=== PATIENT | male | born 1955 | race Caucasian/White ===

== ENCOUNTER 2016-09-30 13:56 | Observation (INO) | payer OTHER ==
[2016-09-30] MEDS ORDERED: NITROGLYCERIN SL TABS 0.4 MG TAB SUBLINGUAL STA (14:39)
[2016-09-30] MEDS ORDERED: SODIUM CHLORIDE 0.9% 1,000 ML IV STA (14:39)
[2016-09-30] MEDS ORDERED: ASPIRIN 81 MG CHEW PO STA (14:39)
--- NOTE | 2016-09-30 14:41 | ED ---
Chest Pain HPI - General Chief Complaint: Chest Pain Stated Complaint: Chest Pain Time Seen by Provider: 09/30/16 14:36 Source: patient, RN notes reviewed Mode of arrival: wheelchair Limitations: no limitations - History of Present Illness Initial Comments: 60-year-old male presents emergency department chief complaint of right-sided chest pressure. Patient states that on off the last 2 days but states gotten worse and now is getting lightheaded with it. Patient states that he seems to make it better or worse. Patient states he's been drinking like before. Patient does admit to a negative stress test within the last year.. High blood pressure he states he does have a mitral valve problem. Patient states she was concerned because of lightheadedness after developing the pains without that he should be seen. Patient denies any recent fever, chills, shortness of breath, back pain, abdominal pain, nausea vomiting, numbness or tingling, dysuria or hematuria, constipation or diarrhea, headaches or visual changes, or any other current symptoms. - Related Data Home Medications Medication Instructions Recorded Confirmed [place]-3 Fatty Acids/Fish Oil [Fish 1 cap PO DAILY 07/12/15 09/30/16 Oil 1,000 mg Softgel] Levothyroxine Sodium [Synthroid] 150 mcg PO DAILY 09/30/16 09/30/16 Previous Rx's Medication Instructions Recorded Atorvastatin [Lipitor] 80 mg PO DAILY #30 tab 07/13/15 Allergies Allergy/AdvReac Type Severity Reaction Status Date / Time No Known Allergies Allergy Verified 09/30/16 15:27 Review of Systems ROS Statement: Those systems with pertinent positive or pertinent negative responses have been documented in the HPI. ROS Other: All systems not noted in ROS Statement are negative. EKG Findings - EKG Comments: EKG Findings:: normal sinus rhythm 68 bpm, rightward axis, no atopy, no S-T depressions or elevations, Past Medical History Past Medical History: GERD/Reflux, Osteoarthritis (OA), Prostate Disorder, Thyroid Disorder Additional Past Medical History / Comment(s): concussions when younger,exposure to asbestoes while in the [employer],hypothyroid History of Any Multi-Drug Resistant Organisms: None Reported Additional Past Surgical History / Comment(s): hemmoroidectomy Past Anesthesia/Blood Transfusion Reactions: No Reported Reaction Past Psychological History: No Psychological Hx Reported Smoking Status: Former smoker Past Alcohol Use History: None Reported Additional Past Alcohol Use History / Comment(s): STARTED SMOKING AT AGE 14, QUIT 2008 Past Drug Use History: None Reported - Past Family History Father Family Medical History: Diabetes Mellitus Mother History Unknown: Yes General Exam - General Exam Comments Initial Comments: General: The patient is awake and alert, in no distress, and does not appear acutely ill. Eye: Pupils are equal, round and reactive to light, extra-ocular movements are intact; there is normal conjunctiva bilaterally. No signs of icterus. Ears, nose, mouth and throat: There are moist mucous membranes. Neck: The neck is supple, there is no tenderness. Cardiovascular: There is a regular rate and rhythm. No murmur, rub or gallop is appreciated. Respiratory: Lungs are clear to auscultation, respirations are non-labored, breath sounds are equal. No wheezes, stridor, rales, or rhonchi. Gastrointestinal: Soft, non-distended, non-tender abdomen without masses or organomegaly noted. There is no rebound or guarding present. No CVA tenderness. Bowel sounds are unremarkable. Back: There is no tenderness to palpation in the midline. There is no obvious deformity. No rashes noted. Musculoskeletal: Normal ROM, no tenderness, There is no pedal edema. There is no calf tenderness or swelling. Sensation intact. Pulses equal bilaterally 2+. Neurological: CN II-XII intact, There are no obvious motor or sensory deficits. Coordination appears grossly intact. Speech is normal. Skin: Skin is warm and dry and no rashes or lesions are noted. Psychiatric: Cooperative, appropriate mood & affect, normal judgment. Limitations: no limitations Course Vital Signs 09/30/16 09/30/16 13:58 15:02 Temperature 98.4 F Pulse Rate 70 61 Respiratory 17 18 Rate Blood Pressure 205/96 186/91 O2 Sat by Pulse 99 100 Oximetry Chest Pain MDM - MDM 60-year-old male presents emergency Department chief complaint of right-sided chest pain. At this time patient's cardiac workup is reviewed and does not show any acute process however the patient does continue of chest pain even after the nitro. MorphineWE will admit patient to Dr. Fernández for cardiac rule out. This discussed with patient who is in agreement with plan.. Patient is in agreement ANSWERED. Patient will be admitted. Disposition Clinical Impression: Unstable angina Disposition: ADMITTED IP TO THIS HOSP Condition: Stable Time of Disposition: 16:45 Decision Date: 09/30/16 Decision Time: 16:45
[2016-09-30 15:27] LABS: Basophils % (A) 1 %; CH 29.7; CHCM 35.1; Eosinophils # (A) 0.1 k/uL (0-0.7); Eosinophils % (A) 1 %; HCT 44.1 % (39.0-53.0); HDW 2.43; HGB 14.9 gm/dL (13.0-17.5); Luc # (Auto) 0.12; Luc % (Auto) 2; Lymphocytes # (A) 1.3 k/uL (1.0-4.8); Lymphocytes % (A) 24 %; MCH 28.8 pg (25.0-35.0); MCHC 33.8 g/dL (31.0-37.0); MCV 85.1 fL (80.0-100.0); Mean Platelet Volume 7.5; Monocytes # (A) 0.4 k/uL (0-1.0); Monocytes % (A) 6 %; Neutrophils # (A) 3.7 k/uL (1.3-7.7); Neutrophils % (A) 66 %; RBC 5.18 m/uL (4.30-5.90); RDW 12.4 % (11.5-15.5); WBC 5.5 k/uL (3.8-10.6); WBC (Perox) 5.44
[2016-09-30 15:34] LABS: Appearance,Urine Clear (Clear); Bilirubin,Urine Negative (Negative); Glucose,Urine (UA) Negative (Negative); Ketones,Urine Negative (Negative); Leukocyte Esterase,Urine Negative (Negative); Nitrite,Urine Negative (Negative); PH, Urine 6.5 (5.0-8.0); Particle Count 214; Protein,Urine Negative (Negative); RBC,Urine 7 /hpf (0-5); Specific Gravity,Urine 1.008 (1.001-1.035); Squamous Epithelial Cell,Urine <1 /hpf (0-4); UA Billing (MACRO vs. MICRO) MICRO; Urobilinogen,Urine <2.0 mg/dL (<2.0)
[2016-09-30 15:35] LABS: INR 1.1 (<1.1); Partial Thromboplastin Time 24.3 sec (22.0-30.0); Prothrombin Time 10.6 sec (9.0-12.0)
[2016-09-30 15:37] LABS: ALT 62 U/L (21-72); AST 34 U/L (17-59); Alkaline Phosphatase 86 U/L (38-126); Amylase 35 U/L (30-110); Anion Gap 12 mmol/L; Blood Urea Nitrogen 14 mg/dL (9-20); Calcium 9.2 mg/dL (8.4-10.2); Carbon Dioxide 26 mmol/L (22-30); Chloride 102 mmol/L (98-107); Glucose 100 mg/dL (74-99); Non-African American GFR(MDRD) >60 (>60 ml/min/1.73 sqM); Potassium 4.2 mmol/L (3.5-5.1); Sodium 140 mmol/L (137-145); Total Bilirubin 0.4 mg/dL (0.2-1.3); Total Protein 7.5 g/dL (6.3-8.2)
[2016-09-30 15:46] LABS: Creatine Kinase 147 U/L (55-170)
[2016-09-30 16:00] LABS: Creatine Kinase MB 2.2 ng/mL (0.0-2.4); Troponin I <0.012 ng/mL (0.000-0.034)
--- NOTE | 2016-09-30 16:34 | XR ---
EXAMINATION TYPE: XR chest 2V DATE OF EXAM: 09/30/2016 4:20 PM COMPARISON: 07/12/2015 HISTORY: 60-year-old male with chest pain TECHNIQUE: PA and lateral views FINDINGS: The cardiomediastinal silhouette, aorta, and pulmonary vasculature are within normal limits. Lungs an d pleural spaces are clear. IMPRESSION: No acute cardiopulmonary process.
[2016-09-30] MEDS ORDERED: NITROGLYCERIN SL TABS 0.4 MG TAB SUBLINGUAL PRN (16:45)
[2016-09-30] MEDS ORDERED: HEPARIN SODIUM,PORCINE 5,000 UNIT/ML 1 ML VIAL IV ONE (16:45)
[2016-09-30] MEDS ORDERED: HEPARIN SODIUM,PORCINE/D5W PMX 25,000 UNIT in DEXTROSE/WATER 1 500ML.BAG IV SCH (16:45)
[2016-09-30] MEDS ORDERED: MORPHINE SULFATE 2 MG/ML SYRINGE IVP PRN (16:47)
[2016-09-30] MEDS: NITROGLYCERIN OINT 1 INCH/GM PACKET TOPICAL SCH (20:45)
[2016-09-30 22:53] LABS: Creatine Kinase 125 U/L (55-170)
[2016-09-30 23:05] LABS: Creatine Kinase MB 1.6 ng/mL (0.0-2.4); Troponin I <0.012 ng/mL (0.000-0.034)
[2016-10-01] MEDS: NITROGLYCERIN OINT 1 INCH/GM PACKET TOPICAL SCH ×3 (01:23→11:26)
[2016-10-01 03:56] LABS: Creatine Kinase 105 U/L (55-170)
[2016-10-01 04:09] LABS: Troponin I <0.012 ng/mL (0.000-0.034)
[2016-10-01 04:18] LABS: Creatine Kinase MB 1.5 ng/mL (0.0-2.4)
[2016-10-01] MEDS ORDERED: LEVOTHYROXINE 75 MCG TAB PO SCH (06:30)
[2016-10-01 07:28] LABS: Mean Platelet Volume 6.8
[2016-10-01 07:47] LABS: Cholesterol 143 mg/dL (<200); HDL Cholesterol 86 mg/dL (40-60); Triglycerides 44 mg/dL (<150)
[2016-10-01 07:55] VITALS: RESP 18
[2016-10-01] MEDS ORDERED: ASPIRIN 325 MG TAB PO SCH (09:00)
[2016-10-01] MEDS ORDERED: ATORVASTATIN 80 MG TAB PO SCH (09:00)
[2016-10-01] MEDS ORDERED: NON-FORMULARY DRUG (Omega-3 Fatty Acids/Fish Oil [Fish Oil 1,000 Mg Softgel] 1 CAP) PO SCH (09:00)
[2016-10-01 12:23] VITALS: BP 144/89; PULSE 62; TEMP 98.2
--- NOTE | 2016-10-01 12:44 | P.HPIM ---
History of Present Illness H&P Date: 10/01/16 60-year-old being seen who presented on the day of admission to the emergency room with right-sided chest pressure. Patient stated been ongoing on and off for the last several days had gotten more symptomatic. Stated he felt slightly lightheaded with it. Patient states he was working outside chopping and working with wood over the last several days after the activity noted the discomfort. Patient states he's never been told he had a heart attack. He states he has seen Dr. 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 Patient stated with the chest pain he did not break out in a sweat was nonradiating was no nausea vomiting. He stated the pain was not constant. Patient's only past medical history is significant for hypothyroid in which his thyroid medication has been adjusted by his primary doctor. Subsequently the patient was seen and evaluated in emergency room admitted to the observation unit chest protocol initiated Review of Systems Essentially unremarkable except as mentioned in the present illness Past Medical History Past Medical History: GERD/Reflux, Osteoarthritis (OA), Prostate Disorder, Thyroid Disorder Additional Past Medical History / Comment(s): concussions when younger,exposure to asbestos while in the [employer],hypothyroid, "RASH ON HANDS FOR PAST WEEK". History of Any Multi-Drug Resistant Organisms: None Reported Additional Past Surgical History / Comment(s): HEMORRHOIDECTOMY Past Anesthesia/Blood Transfusion Reactions: No Reported Reaction Past Psychological History: No Psychological Hx Reported Smoking Status: Former smoker Past Alcohol Use History: Occasional Additional Past Alcohol Use History / Comment(s): STARTED SMOKING AT AGE 14, QUIT 2008, WAS SMOKING 1-1.5 PPD Past Drug Use History: Marijuana Additional Drug Use History / Comment(s): WHEN YOUNGER USED LSD, AMPHETAMINES. DENIED ANY IV DRUG USE. - Past Family History Father Family Medical History: Diabetes Mellitus Mother History Unknown: Yes Additional Family Medical History / Comment(s): HEALTHY AT 80 YEARS OLD , HAS A HEART MURMUR. Medications and Allergies Home Medications Medication Instructions Recorded Confirmed Type [place]-3 Fatty Acids/Fish Oil [Fish 1 cap PO DAILY 07/12/15 09/30/16 History Oil 1,000 mg Softgel] Levothyroxine Sodium [Synthroid] 150 mcg PO DAILY 09/30/16 09/30/16 History Allergies Allergy/AdvReac Type Severity Reaction Status Date / Time No Known Allergies Allergy Verified 09/30/16 15:27 Physical Exam Vitals: Vital Signs Temp Pulse Pulse Resp BP BP Pulse Ox 10/01/16 12:00 98.2 F 62 18 144/89 95 10/01/16 07:52 97.6 F 54 L 18 136/74 96 10/01/16 04:00 97.7 F 52 L 16 140/71 98 10/01/16 03:54 94 16 10/01/16 00:00 48 L 16 09/30/16 23:05 98.1 F 50 L 16 170/87 99 09/30/16 22:16 55 L 16 162/89 97 09/30/16 21:59 57 L 16 165/89 96 09/30/16 21:15 51 L 16 159/89 96 09/30/16 18:22 98 F 52 L 18 152/95 98 09/30/16 18:00 93 18 197/79 93 L Intake and Output 09/30/16 10/01/16 10/01/16 22:59 06:59 14:59 Other: # Voids 1 Weight 71.668 kg GENERAL APPEARANCE: 60-year-old male patient is alert, oriented, in no acute distress. Currently denying chest pain VITAL SIGNS: Reviewed HEENT: Head is normocephalic and atraumatic. Pupils are equal and reactive. The nares are patent. Oropharynx is clear without lesions. NECK: Supple without lymphadenopathy. Traches midline. HEART: S1, S2. Regular rate and rhythm. No murmur noted currently denying chest pain LUNGS: No crackles or wheezes are heard. Adequate air movement bilaterally no wheezing noted ABDOMEN: Soft, nontender, nondistended with good bowel sounds. No peritoneal signs. No palpable organomegaly or masses. EXTREMITIES: Normal skin color and turgor. No cyanosis, rash, ulceration, clubbing or edema. Radial pedal pulses are 2/4 bilaterally. NEUROLOGICAL: No focal deficits. Strength and sensation are grossly intact. Skin bilateral dry scaly skin rash noted to the tops of the hands. No itching. No break in skin integrity. Patient states he was working on an automobile he may have spilled some gas on his hands is not certain but after the activity he noted that he broke out in a rash Results CBC & Chem 7: 10/01/16 06:54 09/30/16 15:00 Labs: Abnormal Lab Results - Last 24 Hours (Table) 09/30/16 10/01/16 10/01/16 Range/Units 22:09 06:54 06:54 APTT 48.8 H 38.3 H (22.0-30.0) sec HDL Cholesterol 86 H (40-60) mg/dL Assessment and Plan Plan: Impression Present on admission right side chest pain suspect muscle skeletal History of hypertension Hypothyroid on supplements A remote history of nicotine dependency quit in 2008 Valvular heart disease mitral valve per patient report A recent stress test 6-8 months prior reported as negative done in the outpatient setting per patient report Plan Prepped for probable discharge home patient will follow-up in the outpatient setting with PCP as scheduled Keep scheduled appointment with Dr. 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 Impression and the plan of care have been dictated as directed. Peyton Mares nurse practitioner acting as a scribe for dr taylor
--- NOTE | 2016-10-01 12:49 | P.DS ---
Providers Date of admission: 09/30/16 16:42 Expected date of discharge: 10/01/16 Attending physician: Karl Taylor Primary care physician: Karl Taylor Hospital Course: 60-year-old being seen who presented on the day of admission to the emergency room with right-sided chest pressure. Patient stated been ongoing on and off for the last several days had gotten more symptomatic. Stated he felt slightly lightheaded with it. Patient states he was working outside [employer] and working with wood over the last several days after the activity noted the discomfort. Patient states he's never been told he had a heart attack. He states he has seen Dr. 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 Patient stated with the chest pain he did not break out in a sweat was nonradiating was no nausea vomiting. He stated the pain was not constant. Patient's only past medical history is significant for hypothyroid in which his thyroid medication has been adjusted by his primary doctor. Subsequently the patient was seen and evaluated in emergency room admitted to the observation unit chest protocol initiated cardiac enzymes 3 sets were negative. The 12-lead EKG showed no ST elevation or T-wave inversion. Patient remained pain-free Impression Present on admission right side chest pain suspect muscle skeletal History of hypertension Hypothyroid on supplements A remote history of nicotine dependency quit in 2008 Valvular heart disease mitral valve per patient report A recent stress test 6-8 months prior reported as negative done in the outpatient setting per patient report The above dictated assessment and findings were discussed with dr taylor . Impression and the plan of care have been dictated as directed. Peyton Mares nurse practitioner acting as a scribe for dr taylor Patient Condition at Discharge: Stable Plan - Discharge Summary Discharge Medication List [place]-3 Fatty Acids/Fish Oil [Fish Oil 1,000 mg Softgel] 1 cap PO DAILY [History] Atorvastatin [Lipitor] 80 mg PO DAILY #30 tab 07/13/15 [Rx] Levothyroxine Sodium [Synthroid] 150 mcg PO DAILY 09/30/16 [History] Follow up Appointment(s)/Referral(s): Karl Taylor MD [Primary Care Provider] - 1 Week Discharge Disposition: HOME SELF-CARE
--- NOTE | 2016-10-02 17:41 | HP ---
DATE OF ADMISSION: 09/30/2016 CHIEF COMPLAINT: Chest pain. HISTORY OF PRESENT ILLNESS: This is another admission for this 60-year-old white male. He presented to the emergency room with chest pain, which is very atypical. Cardiac enzymes and EKG were normal. Because of a history of hyperlipidemia and smoking history, he was admitted for observation. He is not diaphoretic or short of breath and he had no nausea. REVIEW OF SYSTEMS: He denies any headaches, neurologic problems, cough, hemoptysis, sputum production, palpitations, murmurs, rheumatic fever, infarctions, orthopnea, PND, anginal, abdominal pain, indigestion, nausea, vomiting, hematemesis, melena, hematochezia, colitis, diverticulosis, diverticulitis, hemorrhoids, jaundice, hepatitis, cirrhosis, hematuria, frequency, urgency, arthralgias, etc. Past medical history, family history and personal and social history reveal he is not allergic to any medication. The only surgery he has had is a hemorrhoidectomy. He takes levothyroxine 0.2 once a day, Lipitor once a day, ranitidine 150 twice a day and fish oil as well as red palm oil. He used to smoke but he has quit. PHYSICAL EXAMINATION: VITAL SIGNS: Blood pressure 138/78, pulse 58, respirations 16. He is afebrile. GENERAL: He appeared to be well-developed, well-nourished, in no acute distress. SKIN: Skin color is normal. Skin is warm and dry. Lymph nodes are not enlarged. Head, ears, eyes, nose, mouth, and throat were normal. NECK: Neck veins not distended. Thyroid is not enlarged. CHEST: Chest is clear. CARDIAC: Exam is normal. ABDOMEN: Soft, nontender. EXTREMITIES: Normal. NEUROLOGICALLY: Intact. IMPRESSION: 1. Chest pain, atypical. 2. Hypothyroidism. PLAN: 1. Bed rest. 2. IV fluids. 3. Serial EKGs and enzymes.
--- NOTE | 2016-10-02 17:45 | DS ---
DATE OF ADMISSION: 09/30/2016 DATE OF DISCHARGE: 10/01/2016 DATE OF SERVICE: 10/01/2016 CHIEF COMPLAINT: Atypical chest pain. HISTORY OF PRESENT ILLNESS AND PHYSICAL EXAMINATION: Details of this man's history and physical can be found in the initial work-up. LABORATORY STUDIES: While he was in the hospital he had laboratory studies, the details can be found in the laboratory section of his chart. COURSE IN THE HOSPITAL: After admission he was placed on bedrest and he had intravenous fluids and serial EKGs and enzymes that are all normal. It was felt that he could go home on the eighth. This will be arranged by the nurse practitioner. He will go home on his usual activity and diet and will be seen in the office in a few days. FINAL DIAGNOSES: 1. Atypical chest pain. 2. Hypothyroidism. OPERATIONS: None. CONSULTATIONS: None. He is improved.
== END 2016-10-01 12:45 | disposition home or self-care (01) ==
LOC: EC 13:56 → 3OBS 16:42
PROVIDERS: ADMIT Family Medicine; ATTEND Family Medicine
DX: R07.89 Other chest pain (principal); E03.9 Hypothyroidism, unspecified; E78.5 Hyperlipidemia, unspecified; Z77.090 Contact with and (suspected) exposure to asbestos; Z87.891 Personal history of nicotine dependence; Z79.899 Other long term (current) drug therapy; Z79.890 Hormone replacement therapy
CPT/HCPCS: 36415; 93005; 80061; 80053; 82150; 82550 ×2; 82553 ×2; 83690; 83735; 84484 ×2; 85025; 85049; 85610; 85730 ×2; 81001; 71020; 99285; 96365; 96366; 96376; G0378 ×2; J1644 ×2

== ENCOUNTER 2019-01-24 19:14 | Emergency (ER) | payer OTHER ==
[2019-01-24 19:29] VITALS: RESP 16
[2019-01-24] MEDS ORDERED: hydrALAZINE HCL 20 MG/ML 1 ML VIAL IVP STA (19:48)
[2019-01-24 20:28] LABS: ALT 30 U/L (21-72); AST 30 U/L (17-59); Albumin 4.4 g/dL (3.5-5.0); Alkaline Phosphatase 71 U/L (38-126); Anion Gap 8 mmol/L; Blood Urea Nitrogen 15 mg/dL (9-20); Calcium 8.7 mg/dL (8.4-10.2); Carbon Dioxide 29 mmol/L (22-30); Chloride 106 mmol/L (98-107); Glucose 94 mg/dL (74-99); Sodium 143 mmol/L (137-145); Total Bilirubin 0.4 mg/dL (0.2-1.3); Total Protein 7.2 g/dL (6.3-8.2)
[2019-01-24 20:29] LABS: Basophils % (A) 1 %; Eosinophils # (A) 0.1 k/uL (0-0.7); Eosinophils % (A) 2 %; HCT 42.6 % (39.0-53.0); HGB 14.2 gm/dL (13.0-17.5); Lymphocytes # (A) 1.7 k/uL (1.0-4.8); Lymphocytes % (A) 29 %; MCH 27.6 pg (25.0-35.0); MCHC 33.3 g/dL (31.0-37.0); MCV 82.6 fL (80.0-100.0); Mean Platelet Volume 7.1; Monocytes # (A) 0.4 k/uL (0-1.0); Monocytes % (A) 6 %; Neutrophils # (A) 3.7 k/uL (1.3-7.7); Neutrophils % (A) 60 %; Platelet Count 219 k/uL (150-450); RBC 5.15 m/uL (4.30-5.90); RDW 14.4 % (11.5-15.5); WBC 6.1 k/uL (3.8-10.6)
[2019-01-24 20:33] LABS: Potassium 2.8 mmol/L (3.5-5.1)
[2019-01-24] MEDS ORDERED: POTASSIUM CHLORIDE ER 20 MEQ TAB.ER PO STA (20:37)
--- NOTE | 2019-01-24 20:55 | CT ---
EXAMINATION TYPE: CT brain wo con DATE OF EXAM: 01/24/2019 COMPARISON: None HISTORY: Hypertension. Headache CT DLP: 1142.4 mGycm Automated exposure control for dose reduction was used. FINDINGS: Ventricles have normal size. There is no mass effect nor midline shift. There is no sign of intracran ial hemorrhage. The calvarium is intact. IMPRESSION: NEGATIVE CT SCAN OF THE BRAIN.
[2019-01-24] MEDS ORDERED: ACETAMINOPHEN TAB 325 MG TAB PO STA (21:30)
--- NOTE | 2019-01-24 21:36 | ED ---
General Adult HPI - General Chief complaint: Recheck/Abnormal Lab/Rx Stated complaint: High BP Time Seen by Provider: 01/24/19 19:39 Source: patient, RN notes reviewed, old records reviewed Mode of arrival: ambulatory Limitations: no limitations - History of Present Illness Initial comments: 63-year-old male patient past medical history of hypertension presents to ED with elevated blood pressure and mild headache. 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 Patient reports that is approximately 200/100. Patient then presented to ER. Patient denies any chest pain shortness of breath abdominal pain nausea vomiting diarrhea. Patient denies any facial droop, changes in vision patient does report mild occipital lobe headache. Patient states that this headache had a slow onset. Denies worst headache of life, denies thunderclap. Patient denies any other complaints at this time. Systemic: Pt denies fatigue, fever/chills, rash. Pt denies weakness, night sweats, weight loss. Neuro: Pt denies visual disturbances, syncope or pre-syncope. HEENT: Pt denies ocular discharge or irritation, otalgia, rhinorrhea, pharyngitis or notable lymphadenopathy. Cardiopulmonary: Pt denies chest pain, SOB, heart palpitations, dyspnea on exertion. Abdominal/GI: Pt denies abdominal pain, n/v/d. : Pt denies dysuria, burning w/ urination, frequency/urgency. Denies new onset urinary or bowel incontinence. MSK: Pt denies myalgia, loss of strength or function in extremities. Neuro: Pt denies new onset weakness, paresthesias. - Related Data Home Medications Medication Instructions Recorded Confirmed Levothyroxine Sodium [Synthroid] 150 mcg PO DAILY 09/30/16 01/24/19 Fish Oil/Dha/Epa [Fish Oil 1,200 1,200 mg PO DAILY 01/24/19 01/24/19 mg Fish Oil] Lisinopril [Zestril] 10 mg PO DAILY 01/24/19 01/24/19 Previous Rx's Medication Instructions Recorded Atorvastatin [Lipitor] 80 mg PO DAILY #30 tab 07/13/15 Potassium Chloride ER [K-Dur 20] 20 meq PO DAILY 3 Days #3 tab 01/24/19 Allergies Allergy/AdvReac Type Severity Reaction Status Date / Time No Known Allergies Allergy Verified 01/24/19 20:08 Review of Systems ROS Statement: Those systems with pertinent positive or pertinent negative responses have been documented in the HPI. ROS Other: All systems not noted in ROS Statement are negative. Past Medical History Past Medical History: GERD/Reflux, Osteoarthritis (OA), Prostate Disorder, Thyroid Disorder Additional Past Medical History / Comment(s): concussions when younger,exposure to asbestos while in the [employer],hypothyroid, "RASH ON HANDS FOR PAST WEEK". History of Any Multi-Drug Resistant Organisms: None Reported Additional Past Surgical History / Comment(s): HEMORRHOIDECTOMY Past Anesthesia/Blood Transfusion Reactions: No Reported Reaction Past Psychological History: No Psychological Hx Reported Smoking Status: Former smoker Past Alcohol Use History: None Reported Past Drug Use History: None Reported - Past Family History Father Family Medical History: Diabetes Mellitus Mother History Unknown: Yes Additional Family Medical History / Comment(s): HEALTHY AT 80 YEARS OLD , HAS A HEART MURMUR. General Exam - General Exam Comments Initial Comments: Constitutional: NAD, AOX3, Pt has pleasant affect. HEENT: NC/AT, trachea midline, neck supple, no lymphadenopathy. Posterior pharynx non erythematous, without exudates. External ears appear normal, without discharge. Mucous membranes moist. Eyes PERRLA, EOM intact. There is no scleral icterus. No pallor noted. Cardiopulmonary: RRR, no murmurs, rubs or gallops, no JVD noted. Lungs CTAB in anterior and posterior fine. No peripheral edema. Abdominal exam: Abdomen soft and non-distended. Abdomen non-tender to palpation in all 4 quadrants. Bowel sounds active in LLQ. No hepatosplenomegaly. No ecchymosis Neuro: CN II-XII intact. No nuchal rigidity. No raccon eyes, no rodriguez sign, no hemotympanum. No cervical spinal tenderness. NIH 0. MSK: No posterior calf tenderness bilaterally, homans sign negative bilaterally. Posterior tibialis and radial pulse +2 bilaterally. Sensation intact in upper and lower extremities. Full active ROM in upper and lower extremities, 5/5 stregnth. Limitations: no limitations Course Vital Signs 01/24/19 01/24/19 01/24/19 19:26 20:13 20:57 Temperature 97.6 F Pulse Rate 51 L 51 L 64 Respiratory 16 16 16 Rate Blood Pressure 235/94 205/97 179/87 O2 Sat by Pulse 100 99 98 Oximetry Medical Decision Making - Medical Decision Making 63-year-old male patient past medical history of hypertension presents to ED with elevated blood pressure and mild headache. 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 Patient reports that is approximately 200/100. Patient then presented to ER. Patient denies any chest pain shortness of breath abdom inal pain nausea vomiting diarrhea. Patient denies any facial droop, changes in vision patient does report mild occipital lobe headache. Patient states that this headache had a slow onset. Denies worst headache of life, denies thunderclap. Patient denies any other complaints at this time. Physical exam displayed normal neurologic exam x2. No acute pathology. CBC non-impressive. CMP revealed hypokalemia of 2.8. EKG displayed no concern for acute ischemia, no significant change from prior EKG. CT of the brain did not display acute process. Patient was administered 20 mg hydralazine. Patient initial blood pressure 235/94. Upon discharge patient blood pressure 179/87. The headache dee s improved. Patient was administered 40 mEq potassium. Patient discharged with 3 days of potassium supplementation. Patient will follow up with primary care provider tomorrow for continued evaluation of blood pressure control as well as repeat chemistries. Patient return immediately to ER if condition worsens in any way. Case discussed with Dr. Harris. - Lab Data Result diagrams: 01/24/19 20:12 01/24/19 20:11 Lab Results 01/24/19 01/24/19 01/24/19 Range/Units 20:11 20:11 20:12 WBC 6.1 (3.8-10.6) k/uL RBC 5.15 (4.30-5.90) m/uL Hgb 14.2 (13.0-17.5) gm/dL Hct 42.6 (39.0-53.0) % MCV 82.6 (80.0-100.0) fL MCH 27.6 (25.0-35.0) pg MCHC 33.3 (31.0-37.0) g/dL RDW 14.4 (11.5-15.5) % Plt Count 219 (150-450) k/uL Neutrophils % 60 % Lymphocytes % 29 % Monocytes % 6 % Eosinophils % 2 % Basophils % 1 % Neutrophils # 3.7 (1.3-7.7) k/uL Lymphocytes # 1.7 (1.0-4.8) k/uL Monocytes # 0.4 (0-1.0) k/uL Eosinophils # 0.1 (0-0.7) k/uL Basophils # 0.0 (0-0.2) k/uL Sodium 143 (137-145) mmol/L Potassium 2.8 L (3.5-5.1) mmol/L Chloride 106 (98-107) mmol/L Carbon Dioxide 29 (22-30) mmol/L Anion Gap 8 mmol/L BUN 15 (9-20) mg/dL Creatinine 0.83 (0.66-1.25) mg/dL Est GFR (CKD-EPI)AfAm >90 (>60 ml/min/1.73 sqM) Est GFR (CKD-EPI)NonAf >90 (>60 ml/min/1.73 sqM) Glucose 94 (74-99) mg/dL Calcium 8.7 (8.4-10.2) mg/dL Magnesium 2.0 (1.6-2.3) mg/dL Total Bilirubin 0.4 (0.2-1.3) mg/dL AST 30 (17-59) U/L ALT 30 (21-72) U/L Alkaline Phosphatase 71 (38-126) U/L Total Protein 7.2 (6.3-8.2) g/dL Albumin 4.4 (3.5-5.0) g/dL - EKG Data -: EKG Interpreted by Me (and dr harris) EKG Comments: Ventricular rate 48, WI interval 158, QRS 116, QT/QTc 468/14. Sinus bradycardia, otherwise normal EKG. No concern for acute ischemia. No significant change from prior EKG. Disposition Clinical Impression: Hypertension, Headache, Hypokalemia Disposition: HOME SELF-CARE Condition: Stable Instructions (If sedation given, give patient instructions): Hypertension (ED), Acute Headache (ED) Additional Instructions: Patient to adhere to previously discussed treatment plan and will take medication(s) as directed. Patient to follow up with PCP in 1-2 days. Patient to return to ED if symptoms do not improve. Follow-up with primary care provider tomorrow for continued evaluation of blood pressure as well as low potassium. Take medication as directed. Return to ER condition worsens in any way. Prescriptions: Potassium Chloride ER [K-Dur 20] 20 meq PO DAILY 3 Days #3 tab Is patient prescribed a controlled substance at d/c from ED?: No Referrals: Karl Fernández MD [Primary Care Provider] - 1-2 days
[2019-01-24 21:39] VITALS: BP 177/105; PULSE 66; TEMP 97.7
== END 2019-01-24 21:40 | disposition home or self-care (01) ==
LOC: EC 19:14
DX: I10 Essential (primary) hypertension (principal); E87.6 Hypokalemia; R51 Headache; R00.1 Bradycardia, unspecified; E07.9 Disorder of thyroid, unspecified; Z87.891 Personal history of nicotine dependence; Z79.890 Hormone replacement therapy; Z79.899 Other long term (current) drug therapy; Z82.49 Family history of ischemic heart disease and other diseases of the circulatory system
CPT/HCPCS: 36415; 93005; 80053; 83735; 85025; 70450; 99284; 96374; J0360